=== PATIENT | female | born 1990 | race Caucasian/White ===

== ENCOUNTER 2016-12-14 19:56 | Emergency (ER) | payer OTHER | END 2016-12-14 23:03 | disposition other institution (70) | LOC: ED 19:56 | DX: Z02.89 Encounter for other administrative examinations (principal) ==

== ENCOUNTER 2016-12-14 19:56 | Emergency (ER) | payer SELFPAY ==
[2016-12-14 23:03] VITALS: BP 119/88
== END 2016-12-14 23:03 | disposition other institution (70) ==
LOC: ED 19:56
DX: Z02.89 Encounter for other administrative examinations (principal)
CPT/HCPCS: J2800

== ENCOUNTER 2018-11-21 16:30 | Emergency (ER) | payer SELFPAY ==
[~2018-11-21] VITALS: Ht 157.5 cm; Wt 49.9 kg
[2018-11-21 16:34] VITALS: BP 108/72; Ht 157.5 cm; Wt 49.9 kg
== END 2018-11-21 17:35 | disposition home or self-care (01) ==
LOC: ED 16:30
DX: B34.9 Viral infection, unspecified (principal); J06.9 Acute upper respiratory infection, unspecified; R05 Cough